=== PATIENT | male | born 1980 | race African-American/Black ===

== ENCOUNTER 2017-04-15 10:29 | Emergency (ER) | payer SELFPAY ==
[~2017-04-15] VITALS: Ht 170.2 cm; Wt 118.2 kg
[2017-04-15 10:37] VITALS: BP 159/94; TEMP 98.7
[2017-04-15] MEDS ORDERED: AMOXICILLIN 50500 MG PO (11:04)
[2017-04-15 11:30] VITALS: PULSE 79
== END 2017-04-15 11:31 | disposition home or self-care (01) ==
LOC: COL.ER 10:29
DX: H66.91 Otitis media, unspecified, right ear (principal); J03.80 Acute tonsillitis due to other specified organisms

== ENCOUNTER 2017-08-24 18:13 | Emergency (ER) | payer SELFPAY ==
[~2017-08-24] VITALS: Ht 170.2 cm; Wt 122.7 kg
[~2017-08-24 18:13] MED LIST: AMOXICILLIN 50500 MG PO
[2017-08-24 18:19] VITALS: TEMP 99
[2017-08-24] MEDS ORDERED: CEPHALEXIN500 M1 PO (20:41)
[2017-08-24 21:03] VITALS: BP 156/101; PULSE 86
== END 2017-08-24 21:03 | disposition home or self-care (01) ==
LOC: COL.ER 18:13
DX: S61.211A Laceration without foreign body of left index finger without damage to nail, initial encounter (principal); Z23 Encounter for immunization; W26.8XXA Contact with other sharp object(s), not elsewhere classified, initial encounter; Y92.89 Other specified places as the place of occurrence of the external cause